=== PATIENT | female | born 1975 | race Caucasian/White ===

== ENCOUNTER 2020-06-07 07:42 | Day surgery (SDC) | payer OTHER ==
[2020-06-05 14:37] VITALS: BMI 35.2
[~2020-06-07 07:42] MED LIST: LACTATED RINGERS 1,000 ML IV SCH; ONABOTULINUMTOXINA 100 UNIT VIAL MISCELLANE ONE
[2020-06-07 08:17] VITALS: TEMP 96.9
[2020-06-07 08:20] LABS: Glucose,Whole Blood 243 mg/dL (75-99)
[2020-06-07] MEDS ORDERED: PROPOFOL 10 MG/ML 20 ML VIAL IV ONE (08:20)
[2020-06-07] MEDS ORDERED: LIDOCAINE 1% INJ 10MG/ML (20 ML MDV) ONE (08:20)
[2020-06-07] MEDS ORDERED: ONABOTULINUMTOXINA 100 UNIT VIAL MISCELLANE ONE (08:35)
--- NOTE | 2020-06-07 08:46 | P.PCN ---
Date of Procedure: 06/07/20 Procedure(s) Performed: BRIEF HISTORY: Patient is a 45-year-old, pleasant, white female with history of diabetic gastroparesis and long-standing history of as nausea vomiting almost on a daily basis for the last 1 year with multiple hospitalizations. His and scheduled for an upper endoscopy with Botox injection of the pylorus as a part of treatment of diabetic gastroparesis. PROCEDURE PERFORMED: Esophagogastroduodenoscopy with Botox injection of the pylorus and biopsies PREOPERATIVE DIAGNOSIS: Symptomatic Diabetic gastroparesis. IV sedation per anesthesia. PROCEDURE: After informed consent was obtained, the patient was brought into the endoscopy unit. IV sedation was administered by Anesthesia under continuous monitoring. Initially the Olympus GIF-140 video endoscope was inserted into the mouth. Esophagus intubated without any difficulty. It was gradually advanced into the stomach and duodenum and carefully examined. The bulb and the second part of the duodenum appeared normal. The scope at this time was withdrawn to the stomach, adequately insufflated with air, and upon careful examination, mucosa of the antrum, had mild gastritis and biopsies were done from this area. body, cardia and the fundus appeared normal. There was no retained food in the stomach. 100 units of Botox was injected in the pyloric sphincter divided into 4 quadrants. The scope was then withdrawn into the esophagus. The GE junction was located at 39 cm from the incisors. The esophagus appeared normal. Small sliding Hiatal hernia noted. There were no erosions or ulcerations seen and the patient tolerated the procedure well. IMPRESSION: 1. Status post 100 units of Botox injection of the pyloric sphincter as described above. 2. Mild antral gastritis and small hiatal hernia. RECOMMENDATIONS: The findings of this examination were discussed with the patient well as her family. She was advised to continue with Zofran and Protonix for now.. She'll be seen in office in 4 weeks.
[2020-06-07] MEDS ORDERED: ALBUTEROL NEBULIZED 2.5 MG/3 ML INHALATION STA (08:55)
[2020-06-07 09:02] LABS: Glucose,Whole Blood 243 mg/dL (75-99)
[2020-06-07] MEDS ORDERED: LIDOCAINE 2% (PF) 20 MG/ML 5 ML VIAL INHALATION ONE (09:05)
[2020-06-07 09:56] VITALS: BP 95/71; PULSE 88; RESP 16
== END 2020-06-07 09:45 | disposition home or self-care (01) ==
LOC: ORWHC2ENDO 07:42
PROVIDERS: ATTEND Internal Medicine Gastroenterology
DX: D13.0 Benign neoplasm of esophagus (principal); K29.50 Unspecified chronic gastritis without bleeding; K44.9 Diaphragmatic hernia without obstruction or gangrene; K21.9 Gastro-esophageal reflux disease without esophagitis; E11.43 Type 2 diabetes mellitus with diabetic autonomic (poly)neuropathy; J45.909 Unspecified asthma, uncomplicated; Z90.49 Acquired absence of other specified parts of digestive tract; Z90.710 Acquired absence of both cervix and uterus; Z98.890 Other specified postprocedural states; Z79.1 Long term (current) use of non-steroidal anti-inflammatories (NSAID); Z79.4 Long term (current) use of insulin; Z79.899 Other long term (current) drug therapy
CPT/HCPCS: 43239; 43236; 94640; 88305; J2001 ×2; J0585; J2704; 43243

== ENCOUNTER → 2020-07-13 | Outpatient (CLI) | payer OTHER ==
[2020-07-13 13:11] LABS: Basophils % (A) 0 %; Eosinophils # (A) 0.3 k/uL (0-0.7); Eosinophils % (A) 3 %; HCT 41.7 % (34.0-46.0); HGB 13.5 gm/dL (11.4-16.0); Lymphocytes # (A) 2.6 k/uL (1.0-4.8); Lymphocytes % (A) 25 %; MCH 27.4 pg (25.0-35.0); MCHC 32.5 g/dL (31.0-37.0); MCV 84.3 fL (80.0-100.0); Mean Platelet Volume 8.1; Monocytes # (A) 0.6 k/uL (0-1.0); Monocytes % (A) 6 %; Neutrophils # (A) 6.9 k/uL (1.3-7.7); Neutrophils % (A) 65 %; Platelet Count 343 k/uL (150-450); RBC 4.94 m/uL (3.80-5.40); RDW 13.5 % (11.5-15.5); WBC 10.6 k/uL (3.8-10.6)
[2020-07-13 19:26] LABS: African American GFR (CKD) 90.8 (60.0-200.0); Albumin 4.8 g/dL (3.80-4.90); Albumin/Globulin Ratio 2.29 (1.60-3.17); Anion Gap 6.7 mmol/L (4.00-12.00); BUN/Creat Ratio 21.11 Ratio (12.00-20.00); Calcium 9.5 mg/dL (8.7-10.3); Carbon Dioxide 24.3 mmol/L (21.6-31.8); Globulin 2.1 g/dL (1.6-3.3); Non-African American GFR(CKD) 78.3 (60.0-200.0); Potassium 4.1 mmol/L (3.5-5.5); Total Bilirubin 0.4 mg/dL (0.3-1.2); Total Protein 6.9 g/dL (6.2-8.2)
[2020-07-13 19:34] LABS: T4, Free (Free Thyroxine) 1.2 ng/dL (0.80-1.80)
== END | disposition home or self-care (01) ==
LOC: LABWHC1 11:51
PROVIDERS: ATTEND Nurse Practitioner Acute Care
DX: R41.3 Other amnesia (principal); R53.83 Other fatigue; M35.3 Polymyalgia rheumatica
CPT/HCPCS: 36415; 80053; 82306; 82607; 84207; 84439; 84443; 84481; 85025; 86038; 86431

== ENCOUNTER → 2020-08-15 | Outpatient (CLI) | payer OTHER ==
[2020-08-15 15:33] LABS: Amylase 32 U/L (30-110)
== END | disposition home or self-care (01) ==
LOC: LABWHC1 14:26
PROVIDERS: ATTEND Nurse Practitioner
DX: R10.13 Epigastric pain (principal)
CPT/HCPCS: 36415; 82150; 83690

== ENCOUNTER → 2020-08-31 | Outpatient (CLI) | payer OTHER ==
--- NOTE | 2020-08-31 15:05 | US ---
EXAMINATION TYPE: US abdomen limited DATE OF EXAM: 08/31/2020 COMPARISON: NONE CLINICAL HISTORY: R10.13 Epigastric pain. EXAM MEASUREMENTS: Liver Length: 21.0 cm Gallbladder Wall: Surgically absent CBD: 0.6 cm Right Kidney: 9.9 x 4.2 x 4.4 cm Pancreas: Visualized portions appear wnl Liver: Increased attenuation, decreased visualization of vessels suggestive of fatty infiltrate. Enl arged Gallbladder: Surgically absent Evidence for sonographic Armstrong's sign: Yes CBD: wnl as visualized, distal potion obscured by bowel gas Right Kidney: No hydronephrosis or masses seen , right kidney poorly visualized, cortical medullary differentiation thought to be maintained IMPRESSION: Correlate for hepatic steatosis. There is hepatomegaly. Borderline enlarged common bile d uct may be due to postcholecystectomy change.
== END | disposition home or self-care (01) ==
LOC: RADUSWWP 12:04
PROVIDERS: ATTEND Internal Medicine Gastroenterology
DX: R16.0 Hepatomegaly, not elsewhere classified (principal)
CPT/HCPCS: 76705